=== PATIENT | male | born 1965 | race American Indian/Alaskan Native ===

== ENCOUNTER 2016-06-28 10:19 | Outpatient (CLI) | payer OTHER ==
--- NOTE | 2016-06-28 12:01 | XRay Report ---
CHEST 2 VIEWS: INDICATION: Shortness of breath. COMPARISON: None similar. FINDINGS: PA and lateral chest radiographs demonstrate borderline cardiomegaly. Lung markings slightly crowded centrally. Minimal fluid or thickening along the fissures. No large pleural effusions or CHF, however. Mild right upper lobe probable scarring. Right hemidiaphragm slightly elevated. Bony degenerative changes along multiple thoracic spine levels and some at the right AC joint. CONCLUSION: No significant acute chest process with few incidental findings, as above. Please also correlate clinically and with similar prior imaging, if available. Thank you for the opportunity to participate in this patient's care.
== END 2016-06-28 10:20 | disposition home or self-care (01) ==
LOC: XRAY 10:19
PROVIDERS: ATTEND Family Medicine
DX: M47.894 Other spondylosis, thoracic region (principal); Q79.1 Other congenital malformations of diaphragm
CPT/HCPCS: 71020